=== PATIENT | male | born 1935 | race Caucasian/White ===

== ENCOUNTER 2019-01-10 14:05 | Outpatient (CLI) | payer MEDICARE ==
[2019-01-10 15:10] LABS: #Eosinphils 0.3 thou/uL (0.0-0.7); #Monocytes 1.1 thou/uL (0.11-0.59); #Neutrophils 7.8 thou/uL (1.40-6.50); %Basophils 0.3 % (0.0-1.0); %Eosinophils 3.1 % (0.0-10.0); %Lymphocytes 10.1 % (21.0-51.0); %Monocytes 11.1 % (0.0-10.0); %Neutrophils 75.4 % (42.0-75.0); Hemoglobin 12.7 g/dL (14.0-18.0); Mean Corpuscular HGB CONC 33.6 g/dL (32.0-36.0); Mean Corpuscular Volume 89.4 fL (78.0-98.0); Mean Platelet Volume 8.7 fL (7.4-10.4); Platelet Count 158 thou/uL (130-400); RBC Distribution Width 12.7 % (11.5-14.5); Red Blood Cell (RBC) Count 4.24 mill/uL (4.70-6.10); White Blood Cell (WBC) Count 10.3 thou/uL (4.8-10.8)
[2019-01-10 15:15] LABS: Prothrombin Time 13.4 SEC (12.0-14.7)
[2019-01-10 15:30] LABS: Anion Gap 8 mmol/L (10-20); BUN (Urea Nitrogen) 27 mg/dL (8.4-25.7); Calc. Creatinine Clearance 0 mL/min (70-130); Calcium 9.8 mg/dL (7.8-10.44); Carbon Dioxide 27 mmol/L (23-31); Chloride 108 mmol/L (98-107); Estimated GFR-MDRD 50; Glucose 217 mg/dL (83-110); Potassium 5.2 mmol/L (3.5-5.1); Sodium 138 mmol/L (136-145)
--- NOTE | 2019-01-12 16:53 | EKG ---
Test Reason : Blood Pressure : / mmHG Vent. Rate : 072 BPM Atrial Rate : 072 BPM P-R Int : 162 ms QRS Dur : 126 ms QT Int : 406 ms P-R-T Axes : 065 -16 044 degrees QTc Int : 444 ms Sinus rhythm with Premature supraventricular complexes Right bundle branch block Abnormal ECG Confirmed by ALEX BRENNAN ([id number]) on 01/12/2019 4:53:04 PM Referred By: RIO Confirmed By:ALEX BRENNAN
== END 2019-01-10 14:06 | disposition home or self-care (01) ==
LOC: LABBT 14:05
PROVIDERS: ATTEND Orthopaedic Surgery
DX: Z01.818 Encounter for other preprocedural examination (principal); G56.02 Carpal tunnel syndrome, left upper limb
CPT/HCPCS: 80048; 85025; 85610; 85730; 93005; 93010

== ENCOUNTER 2019-01-12 07:06 | Day surgery (SDC) | payer MEDICARE ==
[2019-01-10 14:13] VITALS: BMI 25.8
[2019-01-12] MEDS ORDERED: Lidocaine 1% w/Epinephrine 1:200K 30 ML VIAL ONE (09:38)
[2019-01-12] MEDS ORDERED: Midazolam HCl 2 mg/2 ml Vial ONE (09:53)
[2019-01-12] MEDS ORDERED: Fentanyl 100 MCG/2 ML VIAL ONE (09:54)
[2019-01-12] MEDS ORDERED: Ondansetron PF 4 MG/2 ML Vial ONE (12:59)
[2019-01-12] MEDS ORDERED: PROPOFOL 200 MG/20 ML VIAL ONE (12:59)
--- NOTE | 2019-01-12 17:00 | OP ---
DATE OF PROCEDURE: 01/12/2019 PREOPERATIVE DIAGNOSIS: Left carpal tunnel syndrome. POSTOPERATIVE DIAGNOSIS: Left carpal tunnel syndrome. PROCEDURE PERFORMED: Left open carpal tunnel release. ENSEMBLE MEMBER: None. ANESTHESIOLOGIST: ANESTHESIA: Ciro Jacinto. The patient received TIVA. ESTIMATED BLOOD LOSS: 10 mL. TOURNIQUET TIME: 4 minutes. ANTIBIOTICS: Ancef 2 g. The patient received 8 mL of 1% lidocaine with epi. COMPLICATIONS: None. HISTORY OF PRESENT ILLNESS: Mr. Sawyer is an 83-year-old male, who presented to me with hand numbness and tingling. I discussed with the patient, confirming with nerve conduction studies. The patient had injection, which gave him relief. The patient desired to have surgical release. He understood the risks and benefits of the release to include pain, scar, bleeding, infection, damage to vital structures, need for further surgeries, failure of procedure, neuropathic pain, loss of life or limb. The patient understood the risks and benefits of procedure. He elected to proceed. DESCRIPTION OF PROCEDURE: Time-out was performed designating the patient's left upper extremity as the operative site based on site, consents, and marking. After time-out, the patient's left upper extremity was prepped and draped in sterile fashion. Tourniquet was brought up and was left up for a total of 4 minutes. An incision was made of the 4th ray, proximal to the flexor skin crease down through skin, came to the palmar fascia, came through, put a Mosquito to protect the nerve distally and proximally, transected through the palmaris brevis and transverse carpal ligament, came down, exposed the nerve, ensured that we had a fingerbreadth exposure proximally, watched the tourniquet down at 4 minutes, controlled bleeding, closed with horizontal mattress, repaired with 1 suture, that cut through 2 mm of the skin and made a kind of a Chevron cut and placed horizontal mattress and simple sutures. I injected a wheal of 2 mL of lidocaine before procedure, 1% lidocaine with epi preprocedure, and 6 mL afterwards in the incision. The patient will follow up with me for suture removal in about 10 to 14 days. Keep the dressing on for the next 3-4 days, remove it, place a dressing on top of a carpal tunnel splint as per direction to his . Ice and elevate and follow up in 10 to 14 days. Job ID: [id number]
== END 2019-01-12 11:25 | disposition home or self-care (01) ==
LOC: SDC 07:06
PROVIDERS: ATTEND Orthopaedic Surgery
PROC: 01N50ZZ Release Median Nerve, Open Approach (ICD-10-PCS; principal; 2019-01-12)
DX: G56.02 Carpal tunnel syndrome, left upper limb (principal); I10 Essential (primary) hypertension; E11.9 Type 2 diabetes mellitus without complications; F17.220 Nicotine dependence, chewing tobacco, uncomplicated; Z79.4 Long term (current) use of insulin; Z79.82 Long term (current) use of aspirin; Z79.899 Other long term (current) drug therapy
CPT/HCPCS: J0690; J2250; J3010

== ENCOUNTER 2019-09-27 10:14 | Observation (INO) | payer MEDICARE, OTHER ==
[2019-09-27] MEDS ORDERED: Magnevist 469MG/ML 20 ML VIAL ONE (10:40)
[2019-09-27] MEDS ORDERED: Aspirin Chewable 81 MG TAB ONE (11:00)
[2019-09-27] MEDS ORDERED: Labetalol HCl 100 MG/20 ML VIAL ONE (11:00)
--- NOTE | 2019-09-27 11:15 | PDOC.FPRHP ---
- History of Present Illness Chief Complaint: dizziness, vertigo, confusion History of Present Illness: 84 yo M with HTN, DM2 transferred from [place] ER for stroke alert. Per patient he woke up at 1am with left sided headache, had difficulty putting on his shirt and felt dizzy. Woke up 6 hours later with still persistent symptoms, confused, difficulty walking. Diffiulty figuring out how to turn garage light off. No prior hx of CVA or TIA. No other sxs such as fever, chills, infectious, sick contacts or recent travel. In [place] ER CT head neg. for ICH and CTA with some left vertebral artery focal narrowing but no acute changes. Per ERMD he is having fluctuating confusion, thought to be due to repeated TIA. ED Course: Give ASA and labetalol - Allergies/Adverse Reactions Allergies Allergy/AdvReac Type Severity Reaction Status Date / Time No Known Allergies Allergy Verified 07/30/19 14:47 - Home Medications Medication Instructions Recorded Confirmed Type Aspirin [Aspir-Low] 81 mg PO DAILY 01/10/19 01/10/19 History Ibuprofen [Advil] 200 mg PO Q6HR PRN 01/10/19 01/10/19 History Insulin Glargine,Hum.Rec.Anlog 11 unit VT HS 01/10/19 01/10/19 History [Lantus Solostar] Losartan Potassium [Cozaar] 100 mg PO HS 01/10/19 01/10/19 History Simvastatin [Zocor] 40 mg PO HS 01/10/19 01/10/19 History amLODIPine Besylate [Norvasc] 5 mg PO DAILY 01/10/19 01/10/19 History clonazePAM [Clonazepam] 1 mg PO PRN PRN 01/10/19 01/10/19 History metFORMIN HCl 1,000 mg PO BID 01/10/19 01/10/19 History - History PMHx: HTN, DM2, HLD, hx of bladder CA PSHx: Sarah pouch for bladder cancer. Lumbar back surgery for degenerative disease with stenosis and neuropathy. Right rotator cuff surgery. FHx: HTN, DM Social: Chewing tobacco x30 years, occasional etoh and no drug use - Review of Systems General: denies: fever/chills, weight/appetite/sleep changes Eyes: denies: eye pain ENT: denies: nasal congestion, rhinorrhea Respiratory: denies: cough, congestion, shortness of breath Cardiovascular: denies: chest pain, palpitation Gastrointestinal: denies: nausea, vomiting, diarrhea, constipation, abdominal pain, GI bleeding Skin: denies: rashes, lesions Musculoskeletal: reports: arthritis/arthralgias. denies: pain, tenderness, stiffness Neurological: reports: weakness. denies: numbness, syncope, seizure - Vital signs BP: 176/87, Pulse: 76, Resp: 16, Temp: 99 (Oral), Pain: 0, O2 sat: 97 on (Room Air), Time: 09/27/2019 10:31. - Physical Exam Constitutional: NAD, awake, alert and oriented HEENT: normocephalic and atraumatic, EOMI, no scleral icterus, grossly normal vision, normal nasal mucosa, MMM, oropharynx clear Neck: supple, FROM, trachea midline Heart: RRR, normal S1/S2 Lungs: CTAB, no respiratory distress Musculoskeletal: normal structure, normal tone, ROM grossly normal Neurological: no focal deficit, CN II-XII intact, normal sensation Heme/Lymphatic: no unusual bruising or bleeding Psychiatric: normal mood and affect, good judgment and insight Additional comment: Negative HINTS exam Good cerebellar function No pronator drift FMR H&P: Results - Radiology Interpretation CT scan - head Status: report reviewed by me US - abdomen Status: report reviewed by me FMR H&P: A/P - Problem List (1) HLD (hyperlipidemia) Current Visit: Yes Status: Acute Code(s): E78.5 - HYPERLIPIDEMIA, UNSPECIFIED (2) HTN (hypertension) Current Visit: Yes Status: Acute Code(s): I10 - ESSENTIAL (PRIMARY) HYPERTENSION (3) DM2 (diabetes mellitus, type 2) Current Visit: Yes Status: Acute (4) TIA (transient ischemic attack) Current Visit: Yes Status: Acute Code(s): G45.9 - TRANSIENT CEREBRAL ISCHEMIC ATTACK, UNSPECIFIED - Plan 84 yo M with DM2, HLD, HTN here for TIA, CVA r/o #. TIA, CVA r/o -CTA: Severe focal stenosis at hairpin turn and kink in left certebral artery. Severe cervical spondylosis with high grade neural foraminal stenosis. Left and right internal carotid artery patent. -CTH: No acute ICH -s/p ASA, labetalol -No neuro sxs on my exam. TIA, but will obtain MRI to r/o CVA -Risk stratify with A1c, FLP -NPO pending dysphagia screen -Permissive HTN until 1am 09/27 #. HTN -Hold home meds, see above #. DM2 -Accuchecks, sliding scale, home meds #. HLD -on moderate intensity, will change to high intensity #. CKD3 -At baseline per chart review -Repeat BMP in AM admit: stroke/obs PCP: Dr. Lord dispo: <2 midnights FMR H&P: Upper Level - Plan Date/Time: 09/27/19 1113 I, [], have evaluated this patient and agree with findings/plan as outlined by tech intern resident. Pertinent changes/additions are listed here.
[2019-09-27] MEDS ORDERED: Ondansetron ODT 4 MG TAB SL PRN (13:14)
[2019-09-27] MEDS ORDERED: Ondansetron PF 4 MG/2 ML Vial IVP PRN (13:14)
[2019-09-27] MEDS ORDERED: Lorazepam 0.5 MG TAB PO SCH (13:30)
[2019-09-27 13:31] VITALS: BMI 23.9
[2019-09-27] MEDS ORDERED: HumaLOG 300 UNITS/3 ML VIAL SC PRN (13:40)
[2019-09-27] MEDS ORDERED: Dextrose 50% Abboject 50 ML SYRINGE SLOW IVP PRN (13:40)
[2019-09-27] MEDS ORDERED: Dextrose 5% in Water 1,000 ML IV PRN (13:40)
[2019-09-27 15:18] LABS: Bilirubin Negative (Negative); Blood, Urine 1+ (Negative); Clarity Turbid (Clear); Glucose, Urine (Dipstick) Normal (Negative); Leukocyte 500 Leu/uL (Negative); Nitrite 1+ (Negative); Protein, Urine (Dipstick) 50 mg/dL (Neg-Trace); Renal Epithelial 0-3 HPF (None Seen); Squamous Epithelial 0-3 HPF (0-3); Transitional Epithelial 0-3 HPF (None Seen); Urobilinogen Normal mg/dL (Less than 2); WBC/HPF Greater than 50 HPF (0-3)
[2019-09-27 15:27] LABS: Bacteria/HPF 3+ HPF (None Seen)
[2019-09-27 16:24] LABS: Hemoglobin A1c 7.8 % (4.0-6.0)
--- NOTE | 2019-09-27 16:41 | MRI ---
MRI OF THE BRAIN WITHOUT AND WITH CONTRAST: 09/27/19 HISTORY: Confusion and generalized weakness. TECHNIQUE: Multiplanar and multisequence MR images were obtained of the brain without and with IV contrast. FINDINGS: This exam is limited secondary to motion artifact. There are scattered foci of high FLAIR signal in t he subcortical and periventricular white matter, likely secondary to small vessel ischemic disease. N o restricted diffusion is seen to suggest an acute infarction. No abnormal enhancement is appreciated on this limited exam. There is no evidence of hydrocephalus, intracranial hemorrhage, or extra-axial fluid collection. The expected flow voids are present. The corpus callosum, pituitary, and craniocervical junction are unre markable. The calvarium and overlying soft tissues are unremarkable. The visualized paranasal sinuses and masto id air cells are well aerated. IMPRESSION: Small vessel ischemic disease without acute intracranial abnormality. POS: ARLEYA
[2019-09-27] MEDS ORDERED: Melatonin 3 MG TAB PO PRN (20:24)
--- NOTE | 2019-09-28 05:31 | PDOC.FM ---
- Subjective Subjective: Patient was pacing anxiously in the room at the time of evaluation but did not appear to be in any acute distress. His was present at the time of evaluation, and they both denied any acute overnight events or changes in mental status. - Objective Vital Signs & Weight: Vital Signs (12 hours) Temp Pulse Resp BP Pulse Ox 09/28/19 03:43 98.3 F 64 15 128/59 L 97 09/28/19 00:07 98.9 F 67 13 105/55 L 96 09/27/19 19:24 98.5 F 76 12 159/70 H 95 Weight Weight 67.222 kg I&O: 09/26/19 09/27/19 09/28/19 06:59 06:59 06:59 Intake Total 150 Output Total 200 Balance -50 Phys Exam - Physical Examination Constitutional: NAD HEENT: moist MMs, oral pharynx no lesions Neck: no nodes, no JVD, supple, full ROM Respiratory: no wheezing, no rales, no rhonchi, clear to auscultation bilateral Cardiovascular: RRR, no significant murmur, no rub Gastrointestinal: soft, non-tender, no distention, positive bowel sounds Musculoskeletal: no edema, pulses present Neurological: non-focal, moves all 4 limbs Lymphatic: no nodes Psychiatric: normal affect Skin: no rash Dx/Plan (1) DM2 (diabetes mellitus, type 2) Status: Acute (2) HLD (hyperlipidemia) Code(s): E78.5 - HYPERLIPIDEMIA, UNSPECIFIED Status: Acute (3) HTN (hypertension) Code(s): I10 - ESSENTIAL (PRIMARY) HYPERTENSION Status: Acute (4) TIA (transient ischemic attack) Code(s): G45.9 - TRANSIENT CEREBRAL ISCHEMIC ATTACK, UNSPECIFIED Status: Acute - Plan Plan: Patient is an 84 y/o male with a PMH significant for DM2, HLD, HTN who presented to the ED from an outside facility after a prolonged episode of PEREZ, confusion and difficult walking. 1. Acute Encephalopathy -Differential includes CVA, TIA, infectious process, metabolic disturbance -Symptom onset began at 0100 on 09/26 - outside of tPA Window -CTA Head/Neck: Severe focal stenosis at hairpin turn and "kink" in left Vertebral Artery, severe cervical spondylosis with high grade neural foraminal stenosis, left and right internal carotid artery patent -CT Head: No acute intracranial hemorrhage -MRI Brain: Small vessel ischemic disease w/o acute findings, limited by motion artifact -s/p ASA, Labetalol in ED -No neurologic symptoms reported by multiple ED providers or upon initial evaluation by Resident Medicine Team -FLP evaluated - high-intensity statin recommended based on ASCVD -TSH: 1.47 -UA: Turbid, +Blood, +Nitrites, +Leukocyte Esterase, +WBCs, +Bacteria -Suspect infectious cause based on otherwise negative imaging and lab work-up - will administer Ceftriaxone 1 g IV and plan for DC w/ oral ABx 2. HTN -BP: 173/75 on initial presentation - currently at goal w/o home meds -Will restart home medication regimen as patient is outside 24H Permissive HTN Window 3. DM2 -HgA1c: 7.8 - acceptable based on age and comorbidities -1 elevated POC Glucose since admission - all other readings within acceptable 140-180 range -ACHS Accuchecks -Mild SSI -Will restart home medication regimen 4. HLD -Previously on moderate-intensity statin - will change to high intensity -Will not add daily ASA due to age and CKD 5. CKD3 -At baseline per chart review -Will trend with AM Labs PCP: Dr. Risa Nolasco: Patient is currently stable on the Stroke Floor for evaluation of suspected Acute Encephalopathy, likely secondary to UTI. Will administer ABx as per above and plan for DC. Expected LOS <24H. Addendum - Attending - Attending Attestation Date/Time: 09/28/19 5840 I personally evaluated the patient and discussed the management with Dr. De I agree with the History, Examination, Assessment and Plan documented above with any addition or exceptions noted below. This is an 84 yo M admitted for TIA r/o. MRI shows no acute infarction. Patient states he is feeling back to his normal self. UA shows UTI, will treat and follow culture. Follow up CT scan in 6 mo to follow up on aneurysm per CV recs. Follow up with neurosurgery for spondylosis. Discharge today.
[2019-09-28 06:05] LABS: Cardiac Risk 3.8 (Less than 4.5)
[2019-09-28] MEDS: HumaLOG 300 UNITS/3 ML VIAL SC PRN ×2 (07:13→12:33)
[2019-09-28] MEDS ORDERED: Amlodipine 5 MG TAB PO SCH (09:00)
[2019-09-28] MEDS ORDERED: Enoxaparin Sodium 40 MG/0.4 ML SYRINGE SC SCH (09:00)
[2019-09-28] MEDS ORDERED: Losartan 25 MG TAB PO SCH (09:00)
[2019-09-28] MEDS ORDERED: metFORMIN 500 MG TAB PO SCH (09:00)
[2019-09-28] MEDS ORDERED: Aspirin 81 mg Enteric Coated Tablet PO SCH (09:00)
[2019-09-28] MEDS ORDERED: cefTRIAXone\\ROCEPHIN 1 GM in Sodium Chloride 0.9% 100 ML IVPB SCH (10:00)
[2019-09-28 11:04] VITALS: TEMP 97.6
[2019-09-28 11:34] VITALS: BP 136/68
[2019-09-28] MEDS ORDERED: Prevnar 13-Val Conj/PF 0.5 ML SYRINGE IM ONE (14:45)
[2019-09-28] MEDS ORDERED: Atorvastatin Calcium 40 MG TAB PO SCH (21:00)
[2019-09-28] MEDS ORDERED: Insulin Glargine 16 UNITS in Pre-Filled Syringe 1 EACH SC SCH (21:00)
[2019-09-28] MEDS ORDERED: Non-Formulary Item 1 EACH (Insulin Glargine,Hum.Rec.Anlog [Lantus Solostar] 16 UNIT) SC SCH (21:00)
[2019-09-28] MEDS ORDERED: Simvastatin 40 MG TAB PO SCH (21:00)
--- NOTE | 2019-09-29 01:21 | DIS ---
DATE OF ADMISSION: 09/27/2019 DATE OF DISCHARGE: 09/28/2019 RESIDENT: Jorge De MD ADMITTING ATTENDING: Josiah Mena MD DISCHARGE ATTENDING: Josiah Mena MD CONSULTS: None. PROCEDURES PERFORMED: Brain CT scan performed at an outside hospital revealed no acute intracranial abnormality. However, there was chronic small-vessel ischemic changes and cerebral volume loss. Chest x-ray performed at an outside facility, which showed no evidence of acute cardiopulmonary processes. 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 Diminutive intracranial portion of right vertebral artery. Severe cervical spondylosis with multilevel high-grade neural foraminal stenosis and high-grade central spinal canal stenosis. Brain MRI, which revealed small vessel ischemic disease without acute intracranial abnormality. PRIMARY DIAGNOSIS: Acute metabolic encephalopathy secondary to urinary tract infection. SECONDARY DIAGNOSES: Hypertension, type 2 diabetes, hyperlipidemia, chronic kidney disease, history of bladder cancer, history of prosthetic bladder placement. DISCHARGE MEDICATIONS: Double strength Bactrim p.o. b.i.d. x10 days. DISCONTINUED MEDICATIONS: 1. Ceftriaxone 1 g IV. 2. Amlodipine 5 mg p.o. daily. 3. Lovenox 40 mg SC daily. 4. Humalog 2 units. 5. Lorazepam 0.5 mg p.o. x1. 6. Losartan potassium 100 mg p.o. daily. 7. Melatonin 3 mg p.o. daily. 8. Metformin 1000 mg p.o. b.i.d.. HISTORY OF PRESENT ILLNESS/HOSPITAL COURSE: The patient is an 84-year-old male with past medical history significant for hypertension, type 2 diabetes, who was transferred from [facility] for stroke alert. Per the patient, he woke up at approximately 1:00 a.m. in the morning with left-sided headache and had difficulty putting on a shirt and felt dizzy. He went back to sleep and subsequently woke up 6 hours later with still persistent symptoms to include confusion, difficulty with ambulating, and difficulty with normal functions such as turning on his garage light. The patient has no prior history of CVA or TIA. No other symptoms such as fever, chills, infection, sick contacts, or recent travel were noted. In the [facility] ER, CT head was negative for intracerebral hemorrhage and CTA noted left vertebral artery focal narrowing but no acute changes. Per ED attending physician, the patient was having fluctuating confusion thought to be due to repeated TIAs. The patient was subsequently given aspirin and labetalol and subsequently transferred to the stroke floor for further evaluation. An MRI was performed with the results listed elsewhere in this document. The patient's cognition improved greatly during this time in the hospital and his chronic medical problems were controlled adequately. Upon initial evaluation by the resident medicine team, the patient's cognition was at baseline per the patient's , who was present in the room at the time of evaluation. Following the negative MRI results, the patient was subsequently prepped for discharge due to the fact that the acute metabolic encephalopathy was most likely resultant from urinary tract infection as noted by urinalysis which showed turbid clarity, protein 50, blood +1, nitrite +1, leukocyte esterase 500, urine red blood cells 11-20, urine white blood cells greater than 50, urine transitional epithelial cells 0-3, urine renal epithelial cells 0-3, urine bacteria +3. The patient was subsequently given a single dose of ceftriaxone 1 g IV and his condition was discussed and need for likely completion of the antibiotic course as prescribed as the patient wanted to only take the medication until he "felt better and had some to say for later." Prior to discharge, the patient's vital signs were recorded as temperature 97.6, pulse 68, respirations 20 per minute, O2 saturation 96% on room air, and blood pressure 158/70. LABORATORY ANALYSIS: Revealed white blood cell count of 10.3, hemoglobin 13.3, hematocrit 44.1, platelet count 154. Coag panel revealed a PT of 14.8, INR of 1.2, APTT of 33.9. Chem panel revealed a sodium of 137, potassium 4.6, chloride 104, carbon dioxide 23, BUN 26, creatinine 1.58, which is consistent with previous hospitalizations. POC glucose 195. Hemoglobin 11.8. Lactic acid 1, calcium 9.8, AST 18, ALT 12. Troponins negative x1. Triglycerides 123, cholesterol 152, LDL 87, HDL 40, TSH 1.4659. DISPOSITION: Stable. DISCHARGE INSTRUCTIONS: 1. Location: Home. 2. Diet: Heart healthy and carbohydrate conscious. 3. Activity: No restrictions. 4. Followup: The patient was encouraged to follow up with his primary care physician in 2 to 3 weeks in order to discuss his most recent hospitalization. Additionally, the patient was encouraged to discuss the need for repeat CT scan in approximately 6 months in order to assess progression for known aortic aneurysm, as well as need to evaluate foraminal and spinal canal stenosis at some point in the future, possibly with Neurosurgery. 5. Note, the patient's statin was changed from moderate intensity to high-intensity prior to discharge with appropriate prescriptions sent to the patient's preferred pharmacy. Job ID: [id number]
== END 2019-09-28 13:46 | disposition home or self-care (01) ==
LOC: ERS 10:14 → 2SE 11:20
PROVIDERS: ADMIT Family Medicine; ATTEND Family Medicine
DX: N39.0 Urinary tract infection, site not specified (principal); G93.41 Metabolic encephalopathy; I12.9 Hypertensive chronic kidney disease with stage 1 through stage 4 chronic kidney disease, or unspecified chronic kidney disease; E11.22 Type 2 diabetes mellitus with diabetic chronic kidney disease; N18.3 Chronic kidney disease, stage 3 (moderate); E78.5 Hyperlipidemia, unspecified; I65.02 Occlusion and stenosis of left vertebral artery; M47.812 Spondylosis without myelopathy or radiculopathy, cervical region; M48.02 Spinal stenosis, cervical region; F41.9 Anxiety disorder, unspecified; F17.220 Nicotine dependence, chewing tobacco, uncomplicated; Z79.4 Long term (current) use of insulin; Z79.82 Long term (current) use of aspirin; Z79.899 Other long term (current) drug therapy
CPT/HCPCS: 70553; 80061; 82962 ×2; 83036; 84443; 87077; 87086; 87186; 96365; 96372; 97116 ×2; 97139 ×5; 99285; G0378 ×3; 36415; 36416; 81003; 81015; A9579; J0696; J1650; J3490

== ENCOUNTER 2020-03-20 13:40 | Outpatient (CLI) | payer MEDICARE, OTHER ==
--- NOTE | 2020-03-20 15:21 | MRI ---
MRI LUMBAR SPINE NONCONTRAST: HISTORY: Previous surgery. Left leg and back pain. COMPARISON: 09/14/2013. FINDINGS: Overall there is appropriate T1 marrow signal intensity of the lumbar vertebrae. Lumbar spine vertebr al body heights are maintained. There is no vertebral body fracture. There is an acute Schmorl's node along the inferior endplate of L2 with associated edema. There is a remote Schmorl's node along the superior endplate of L4. There are type I Modic changes at L2-L3, type II Modic changes at L3-L4 and L4-L5. No significant STIR hyperintensity to suggest ligamentous edema or vertebral body fracture. There are T2 hyperintensities involving the left and right renal cortex compatible with cortical and parapelvic cysts. There is a nonspecific T2 hyperintense focus in the right hemipelvis, incompletely evaluated. This lesion is unchanged when compared to the previous MRI. Currently, this l esion measures 2.5 x 2.4 cm, previously measuring 2.4 cm. Conus medullaris terminates at the T12-L1 disc space. T12-L1:Adequate disc hydration. No posterior disc abnormality. No significant central canal stenosis or significant neural foraminal narrowing. L1-L2:Disc desiccation with mild loss of disc space height. Broad-based disc bulge minimally flattens the ventral thecal sac. No significant central canal stenosis. Right neural foramen is patent. Mild left neural foraminal narrowing. L2-L3:Disc desiccation with severe loss of disc space height. Broad-based disc bulge, ligament flavum thickening and facet hypertrophy. Moderate central canal stenosis. Partial obscuration of bilateral traversing L3 nerve roots. Moderate bilateral neural foraminal narrowing. 4.1 mm of retroli sthesis of L2 upon L3. L3-L4:Disc desiccation with moderate loss of disc space height. There is posterior laminectomy defect . No significant central canal stenosis. There is bilateral facet hypertrophy. Moderate bilateral neural foraminal narrowing. L4-L5:Disc desiccation with moderate loss of disc space height. Posterior laminectomy defect. Broad-b ased disc bulge results in mild central canal stenosis. There is mass effect and partial obscuration of the traversing right L5 nerve root secondary to a small synovial cyst. There is bilate ral facet hypertrophy along with fluid in both facet joints. There is interval 0.6 cm of anterolisthesis of L3 for upon L5. Questionable associated spondylolysis. Lumbar spine radiograph ser ies would be beneficial to assess the facets. Moderate to severe right and moderate left neural foraminal narrowing. L5-S1:Disc desiccation without significant loss of disc space height. Central disc herniation with as sociated annular fissure abuts the ventral thecal sac. There is narrowing of the right subareolar zone with partial obscuration traversing right S1 nerve root. Left subarticular zone is intact. Mild bilateral neural foraminal narrowing. IMPRESSION: Multilevel degenerative changes of the lumbar spine as described above. Lumbar spine rad iograph series may be beneficial to assess for possible bilateral pars defects at L4-L5. Grade I anterolisthesis of L4 upon L5 has developed since the previous exam. Transcribed Date/Time: 03/20/2020 3:30 PM
== END 2020-03-20 13:41 | disposition home or self-care (01) ==
LOC: TBSIIMAG 13:40
PROVIDERS: ATTEND Orthopaedic Surgery
DX: M48.061 Spinal stenosis, lumbar region without neurogenic claudication (principal); M47.816 Spondylosis without myelopathy or radiculopathy, lumbar region; M43.16 Spondylolisthesis, lumbar region
CPT/HCPCS: 72148